=== PATIENT | male | born 1975 | race African-American/Black ===

== ENCOUNTER 2019-03-29 07:56 | Emergency (ER) | payer BC, SELFPAY ==
--- NOTE | 2019-03-29 10:11 | RAD ---
PA AND LATERAL CHEST: Date: 03/29/19 HISTORY: Cold and flu-like symptoms. FINDINGS: The heart size and mediastinum are within normal limits. I do not see any definite confluent infiltra tive process. Some slightly increased density is seen in the right upper lobe as compared to the left side, but difficult to substantiate as a definite infiltrate. IMPRESSION: Vague increased parenchymal density in the right upper lobe. The possibility that this represents nic e early pneumonitis change is not totally excluded. POS: [facility]
== END 2019-03-29 09:30 | disposition home or self-care (01) ==
LOC: ERS 07:56
DX: J18.9 Pneumonia, unspecified organism (principal); F17.210 Nicotine dependence, cigarettes, uncomplicated; H66.92 Otitis media, unspecified, left ear
CPT/HCPCS: 71046; 99283

== ENCOUNTER 2019-09-05 12:05 | Emergency (ER) | payer BC | END 2019-09-05 12:50 | disposition left against medical advice (07) | LOC: ERS 12:05 | DX: Z53.21 Procedure and treatment not carried out due to patient leaving prior to being seen by health care provider (principal) ==

== ENCOUNTER 2020-07-26 07:36 | Emergency (ER) | payer BC, SELFPAY ==
[2020-07-26 08:34] LABS: #Eosinphils 0.5 thou/uL (0.0-0.7); #Lymphocytes 1.5 thou/uL (1.20-3.40); #Monocytes 1.1 thou/uL (0.11-0.59); #Neutrophils 6.8 thou/uL (1.40-6.50); %Basophils 0.3 % (0.0-1.0); %Eosinophils 5.1 % (0.0-10.0); %Lymphocytes 15.3 % (21.0-51.0); %Monocytes 10.6 % (0.0-10.0); %Neutrophils 68.7 % (42.0-75.0); Mean Corpuscular HGB CONC 33.6 g/dL (32.0-36.0); Mean Corpuscular Hemoglobin 31.5 pg (27.0-31.0); Mean Platelet Volume 7.9 fL (7.4-10.4); Platelet Count 232 thou/uL (130-400); RBC Distribution Width 12.5 % (11.5-14.5); Red Blood Cell (RBC) Count 4.75 mill/uL (4.70-6.10); White Blood Cell (WBC) Count 9.9 thou/uL (4.8-10.8)
[2020-07-26 08:44] LABS: Bacteria/HPF None Seen HPF (None Seen); Bilirubin Negative (Negative); Blood, Urine Trace (Negative); Clarity Clear (Clear); Glucose, Urine (Dipstick) Normal (Negative); Ketone, Urine Negative (Negative); Leukocyte Negative Leu/uL (Negative); Nitrite Negative (Negative); Protein, Urine (Dipstick) 300 mg/dL (Neg-Trace); RBC/HPF 0-3 HPF (0-3); Specific Gravity, Urine 1.025 (1.002-1.036); Squamous Epithelial 0-3 HPF (0-3); Urobilinogen 3 mg/dL (Less than 2); WBC/HPF 0-3 HPF (0-3); pH, Urine 6.5 (5.0-9.0)
[2020-07-26 08:59] LABS: ALT (SGPT) 31 U/L (8-55); AST (SGOT) 35 U/L (5-34); Albumin 2.6 g/dL (3.5-5.0); Alkaline Phosphatase 88 U/L (40-110); Anion Gap 10 mmol/L (10-20); BUN (Urea Nitrogen) 11 mg/dL (8.9-20.6); Bilirubin, Total 0.8 mg/dL (0.2-1.2); Calc. Creatinine Clearance 0 mL/min (70-130); Carbon Dioxide 27 mmol/L (22-29); Chloride 102 mmol/L (98-107); Globulin 4.6 g/dL (2.4-3.5); Glucose 90 mg/dL (70-105); Lipase 25 U/L (8-78); Potassium 3.5 mmol/L (3.5-5.1); Protein, Total 7.2 g/dL (6.0-8.3); Sodium 135 mmol/L (136-145)
[2020-07-26] MEDS ORDERED: Iopamidol-370 76% 500 ML 1 ML ONE (08:59)
== END 2020-07-26 09:59 | disposition home or self-care (01) ==
LOC: ERS 07:36
DX: K57.32 Diverticulitis of large intestine without perforation or abscess without bleeding (principal); F17.210 Nicotine dependence, cigarettes, uncomplicated
CPT/HCPCS: 74177; 80053; 81003; 81015; 83690; 85025; Q9967

== ENCOUNTER 2021-05-09 14:29 | Inpatient (IN) | payer SELFPAY ==
[2021-05-09 15:00] LABS: #Lymphocytes 1.3 thou/uL (1.20-3.40); #Monocytes 1.1 thou/uL (0.11-0.59); #Neutrophils 6.8 thou/uL (1.40-6.50); %Basophils 0.1 % (0.0-1.0); %Eosinophils 0.1 % (0.0-10.0); %Lymphocytes 14.2 % (21.0-51.0); %Neutrophils 73.6 % (42.0-75.0); Hemoglobin 6.9 g/dL (14.0-18.0); Mean Corpuscular HGB CONC 34.5 g/dL (32.0-36.0); Mean Corpuscular Hemoglobin 31.6 pg (27.0-31.0); Mean Corpuscular Volume 91.6 fL (78.0-98.0); Mean Platelet Volume 6.7 fL (7.4-10.4); Platelet Count 258 thou/uL (130-400); RBC Distribution Width 12.7 % (11.5-14.5); White Blood Cell (WBC) Count 9.2 thou/uL (4.8-10.8)
[2021-05-09] MEDS ORDERED: Aspirin Chewable 81 MG TAB ONE ×2 (15:02→15:04)
[2021-05-09] MEDS ORDERED: DOBUTamine 500 mg/250 ml 250 ML ONE (15:02)
[2021-05-09] MEDS ORDERED: Furosemide 40 MG/4 ML VIAL ONE (15:02)
[2021-05-09 15:13] LABS: INR-International Normal Ratio 1.1; Prothrombin Time 14.5 sec (12.0-14.7)
[2021-05-09 15:14] LABS: PTT 52.1 sec (22.9-36.1)
[2021-05-09 15:26] LABS: ALT (SGPT) 18 U/L (8-55); AST (SGOT) 32 U/L (5-34); Alkaline Phosphatase 128 U/L (40-110); Anion Gap 8 mmol/L (10-20); BUN (Urea Nitrogen) 51 mg/dL (8.9-20.6); Bilirubin, Total Less than 0.2 mg/dL (0.2-1.2); Calc. Creatinine Clearance 0 mL/min (70-130); Calcium 6.7 mg/dL (7.8-10.44); Carbon Dioxide 12 mmol/L (22-29); Chloride 117 mmol/L (98-107); Globulin 3.4 g/dL (2.4-3.5); Glucose 107 mg/dL (70-105); Potassium 4.3 mmol/L (3.5-5.1); Protein, Total 4.4 g/dL (6.0-8.3); Sodium 133 mmol/L (136-145)
[2021-05-09 15:50] LABS: SARS-CoV-2 NAA Rapid Test Not Detected (NotDetected)
[2021-05-09 16:25] LABS: CK (CPK) 87 U/L (30-200); Lipase 41 U/L (8-78)
[2021-05-09] MEDS ORDERED: Pantoprazole 40 MG VIAL ONE (16:29)
[2021-05-09 16:46] LABS: Bacteria/HPF None Seen HPF (None Seen); Bilirubin Negative (Negative); Blood, Urine 1+ (Negative); Clarity Turbid (Clear); Glucose, Urine (Dipstick) 70 mg/dL (Negative); Ketone, Urine Negative (Negative); Leukocyte Negative Leu/uL (Negative); Nitrite Negative (Negative); Protein, Urine (Dipstick) 200 mg/dL (Neg-Trace); RBC/HPF 0-3 HPF (0-3); Specific Gravity, Urine 1.015 (1.002-1.036); Squamous Epithelial 0-3 HPF (0-3); Urobilinogen Normal mg/dL (Less than 2); WBC/HPF None Seen HPF (0-3); pH, Urine 5.5 (5.0-9.0)
[2021-05-09] MEDS ORDERED: Ondansetron ODT 4 MG TAB PO PRN (16:51)
[2021-05-09] MEDS ORDERED: Ondansetron PF 4 MG/2 ML Vial IVP PRN (16:51)
[2021-05-09] MEDS ORDERED: Sodium Chloride 0.9% 1,000 ML IV SCH (17:00)
[2021-05-09 18:04] LABS: Reticulocyte Count 1.4 % (0.5-1.5)
[2021-05-09 18:25] LABS: Iron 11 ug/dL (65-175)
[2021-05-09 19:05] LABS: Iron Binding Capacity, Total 51 mcg/dL (261-462)
[2021-05-09] MEDS ORDERED: Calcium Carbonate 500 MG ChewTAB PO PRN (19:41)
[2021-05-09] MEDS ORDERED: DOBUTamine 500 mg/250 ml 250 ML IVPB SCH (19:45)
[2021-05-09] MEDS ORDERED: Folic Acid 1 MG TAB PO SCH (21:00)
[2021-05-09] MEDS ORDERED: Pantoprazole 40 MG VIAL IVP SCH ×2 (21:00)
[2021-05-09] MEDS: Doxycycline 100 MG CAP PO SCH (22:03)
[2021-05-09] MEDS: Senokot S 8.6-50 MG TAB PO SCH (22:04)
[2021-05-09] MEDS: Thiamine 100 MG TAB PO SCH (22:04)
[2021-05-09] MEDS ORDERED: Sodium Bicarbonate Tab 325 MG TAB PO SCH (22:15)
[2021-05-09 23:27] VITALS: BMI 21.7
[2021-05-09] MEDS: Albumin 25% 25 GM/100 ML BOT IVPB SCH (23:49)
[2021-05-09] MEDS: Furosemide 20 MG/2 ML VIAL SLOW IVP SCH (23:50)
[2021-05-09] MEDS ORDERED: Furosemide 20 MG/2 ML VIAL SLOW IVP SCH (23:59)
[2021-05-10 04:44] LABS: #Lymphocytes 1.3 thou/uL (1.20-3.40); #Monocytes 0.8 thou/uL (0.11-0.59); #Neutrophils 5.9 thou/uL (1.40-6.50); %Eosinophils 0.5 % (0.0-10.0); %Lymphocytes 16.3 % (21.0-51.0); %Monocytes 9.7 % (0.0-10.0); %Neutrophils 73.4 % (42.0-75.0); Hemoglobin 8.4 g/dL (14.0-18.0); Mean Corpuscular HGB CONC 33.7 g/dL (32.0-36.0); Mean Corpuscular Hemoglobin 29.8 pg (27.0-31.0); Mean Corpuscular Volume 88.5 fL (78.0-98.0); Mean Platelet Volume 6.6 fL (7.4-10.4); Platelet Count 250 thou/uL (130-400); RBC Distribution Width 14.9 % (11.5-14.5); Red Blood Cell (RBC) Count 2.82 mill/uL (4.70-6.10); White Blood Cell (WBC) Count 8.1 thou/uL (4.8-10.8)
[2021-05-10 05:15] LABS: ALT (SGPT) 16 U/L (8-55); AST (SGOT) 27 U/L (5-34); Albumin 1.3 g/dL (3.5-5.0); Alkaline Phosphatase 115 U/L (40-110); Anion Gap 7 mmol/L (10-20); BUN (Urea Nitrogen) 49 mg/dL (8.9-20.6); Bilirubin, Total 0.4 mg/dL (0.2-1.2); CRP (Inflammatory) 4.65 mg/dL (= or < 0.5); Calc. Creatinine Clearance 31 mL/min (70-130); Calcium 7.2 mg/dL (7.8-10.44); Carbon Dioxide 15 mmol/L (22-29); Chloride 114 mmol/L (98-107); Globulin 3.1 g/dL (2.4-3.5); Glucose 68 mg/dL (70-105); Protein, Total 4.4 g/dL (6.0-8.3); Sodium 132 mmol/L (136-145)
[2021-05-10 05:28] LABS: Hep C IgG Ab Non-Reactive (NonReactive); Hep C Index 0.32 S/CO (0-0.79)
[2021-05-10 05:34] LABS: Vitamin B12 786 pg/mL (211-911)
[2021-05-10] MEDS: Albumin 25% 25 GM/100 ML BOT IVPB SCH ×3 (06:13→17:03)
[2021-05-10] MEDS: Furosemide 20 MG/2 ML VIAL SLOW IVP SCH (06:13)
[2021-05-10] MEDS ORDERED: Aspirin 81 mg Enteric Coated Tablet PO SCH ×2 (09:00)
[2021-05-10] MEDS: pyridOXINE 50 MG (B6) TAB PO SCH (10:57)
[2021-05-10] MEDS: Multivit, Therapeutic 1 TAB PO SCH (10:57)
[2021-05-10] MEDS: Folic Acid 1 MG TAB PO SCH (10:57)
[2021-05-10] MEDS: Doxycycline 100 MG CAP PO SCH ×2 (10:57→22:19)
[2021-05-10] MEDS: Cyanocobalamin (Vitamin B-12) 1,000 MCG TAB PO SCH (10:57)
[2021-05-10] MEDS: Senokot S 8.6-50 MG TAB PO SCH ×2 (10:58→22:19)
[2021-05-10] MEDS: EPOETIN ALFA-EPBX (ESRD) 10,000 UNIT/ML VIAL SC SCH (17:04)
[2021-05-10] MEDS: Thiamine 100 MG TAB PO SCH (22:19)
[2021-05-10] MEDS: Acetaminophen 325 MG TAB PO PRN (22:20)
[2021-05-10] MEDS: Atorvastatin Calcium 20 MG TAB PO SCH (22:20)
[2021-05-11] MEDS: Albumin 25% 25 GM/100 ML BOT IVPB SCH (00:20)
[2021-05-11 05:26] LABS: #Eosinphils 0.1 thou/uL (0.0-0.7); #Lymphocytes 0.9 thou/uL (1.20-3.40); #Monocytes 0.8 thou/uL (0.11-0.59); #Neutrophils 5.7 thou/uL (1.40-6.50); %Basophils 0.4 % (0.0-1.0); %Eosinophils 0.8 % (0.0-10.0); %Lymphocytes 12.6 % (21.0-51.0); %Monocytes 10.4 % (0.0-10.0); %Neutrophils 75.9 % (42.0-75.0); Hemoglobin 7.9 g/dL (14.0-18.0); Mean Corpuscular HGB CONC 34.1 g/dL (32.0-36.0); Mean Corpuscular Hemoglobin 30.2 pg (27.0-31.0); Mean Corpuscular Volume 88.5 fL (78.0-98.0); Mean Platelet Volume 6.8 fL (7.4-10.4); Platelet Count 230 thou/uL (130-400); RBC Distribution Width 14.8 % (11.5-14.5); White Blood Cell (WBC) Count 7.5 thou/uL (4.8-10.8)
[2021-05-11 05:46] LABS: ALT (SGPT) 12 U/L (8-55); AST (SGOT) 23 U/L (5-34); Albumin 1.8 g/dL (3.5-5.0); Alkaline Phosphatase 91 U/L (40-110); Anion Gap 9 mmol/L (10-20); BUN (Urea Nitrogen) 50 mg/dL (8.9-20.6); Bilirubin, Total 0.4 mg/dL (0.2-1.2); Calc. Creatinine Clearance 28 mL/min (70-130); Calcium 7.2 mg/dL (7.8-10.44); Carbon Dioxide 13 mmol/L (22-29); Chloride 117 mmol/L (98-107); Globulin 2.7 g/dL (2.4-3.5); Glucose 91 mg/dL (70-105); Potassium 3.6 mmol/L (3.5-5.1); Protein, Total 4.5 g/dL (6.0-8.3); Sodium 135 mmol/L (136-145)
[2021-05-11 06:24] LABS: HBSAg Index 0.24 S/CO (0-0.99); Hep B Surf Ag Non-Reactive S/CO (NonReactive)
[2021-05-11 06:28] LABS: HIV (1/2) Antibody/Antigen Reflxed Confirmation (NonReactive)
[2021-05-11] MEDS ORDERED: Potassium Chloride 20 MEQ TAB PO SCH (08:45)
[2021-05-11] MEDS: Doxycycline 100 MG CAP PO SCH ×2 (10:21→21:18)
[2021-05-11] MEDS: pyridOXINE 50 MG (B6) TAB PO SCH (10:30)
[2021-05-11] MEDS: Folic Acid 1 MG TAB PO SCH (10:31)
[2021-05-11] MEDS: Sodium Bicarbonate Tab 325 MG TAB PO SCH ×3 (10:31→21:18)
[2021-05-11] MEDS: Multivit, Therapeutic 1 TAB PO SCH (10:32)
[2021-05-11] MEDS: Cyanocobalamin (Vitamin B-12) 1,000 MCG TAB PO SCH (10:32)
[2021-05-11] MEDS: Senokot S 8.6-50 MG TAB PO SCH ×2 (10:33→21:19)
[2021-05-11] MEDS: Acetaminophen 325 MG TAB PO PRN (13:40)
[2021-05-11] MEDS: Cefepime 1 GM in Sodium Chloride 0.9% 100 ML IVPB SCH (15:28)
[2021-05-11] MEDS ORDERED: Vancomycin HCl 1 GM in Sodium Chloride 0.9% 250 ML 250 ML IVPB SCH (16:00)
[2021-05-11] MEDS: VANCOMYCIN 1.25 GM/250 ML BAG 1.25 GM in Premix Bag 1 BAG IVPB SCH (17:01)
[2021-05-11] MEDS ORDERED: DOBUTamine 500 mg/250 ml 250 ML IVPB SCH (19:59)
[2021-05-11] MEDS: Atorvastatin Calcium 20 MG TAB PO SCH (21:19)
[2021-05-11] MEDS: Thiamine 100 MG TAB PO SCH (21:19)
[2021-05-12] MEDS: Sodium Bicarbonate Tab 325 MG TAB PO SCH ×5 (10:17→21:08)
[2021-05-12] MEDS: Doxycycline 100 MG CAP PO SCH ×2 (10:18→21:07)
[2021-05-12] MEDS: Cyanocobalamin (Vitamin B-12) 1,000 MCG TAB PO SCH (10:18)
[2021-05-12] MEDS: Multivit, Therapeutic 1 TAB PO SCH (10:18)
[2021-05-12] MEDS: Folic Acid 1 MG TAB PO SCH (10:18)
[2021-05-12] MEDS: pyridOXINE 50 MG (B6) TAB PO SCH (10:18)
[2021-05-12] MEDS: Senokot S 8.6-50 MG TAB PO SCH ×2 (10:19→21:08)
[2021-05-12 10:39] LABS: Albumin-Ur 28.9 % (.); Alpha 1 - Ur 3.3 % (.); Alpha 2 - Ur 11.2 % (.); Beta-Ur 16.2 % (.); Gamma-Ur 40.4 % (.); M-Spike,% Not Observed % (Not Observed); Protein, Urine 458.6 mg/dL (Not Estab.)
[2021-05-12 12:51] LABS: ANA Symphony (Qualitative) Negative (Negative); ANA Symphony (Quantitative) 0.5 Ratio (< 0.7 Negative); dsDNA IgG Antibody 5.8 IU/mL (<10 Negative)
[2021-05-12 13:15] LABS: HIV 1 Antibody Multi-Spot Positive (Negative); HIV 2 Antibody Multi-Spot Negative (Negative); HIV Multi-spot Interp HIV-1 Positive (.)
[2021-05-12 13:20] LABS: EliA Vaculitis New Method **** NEW METHOD ****; Glomerular Basemt Membrane Ab 2.7 EliAU/mL (<7 Negative)
[2021-05-12 13:39] LABS: Kappa Light Chains 468.4 mg/L (3.3-19.4)
[2021-05-12 14:43] LABS: Vancomycin, Random 13.5 ug/mL (See Comment)
[2021-05-12] MEDS: VANCOMYCIN 1.25 GM/250 ML BAG 1.25 GM in Premix Bag 1 BAG IVPB SCH (15:11)
[2021-05-12] MEDS: Acetaminophen 325 MG TAB PO PRN (15:15)
[2021-05-12] MEDS ORDERED: VANCOMYCIN 1.25 GM/250 ML BAG 1.25 GM in Premix Bag 1 BAG IVPB SCH (15:45)
[2021-05-12] MEDS ORDERED: Furosemide 20 MG/2 ML VIAL SLOW IVP SCH (16:30)
[2021-05-12 16:36] LABS: %CD4 (Helper/Inducer) 7.7 % (30.8-58.5); Absolute CD4 62 /uL (359-1519); Lymphocytes/Gated Cell Count 0.8 x10E3/uL (0.7-3.1); Total Lymphocyte 12 % (Not Estab.)
[2021-05-12] MEDS: Cefepime 1 GM in Sodium Chloride 0.9% 100 ML IVPB SCH (17:12)
[2021-05-12 17:37] LABS: A/G Ratio 0.8 (0.7-1.7); Albumin 1.8 g/dL (2.9-4.4); Alpha 1 0.2 g/dL (0.0-0.4); Alpha 2 0.6 g/dL (0.4-1.0); Beta 0.7 g/dL (0.7-1.3); Gamma 0.9 g/dL (0.4-1.8); Globulin, Total 2.4 g/dL (2.2-3.9); M-Spike Not Observed g/dL (Not Observed); Protein Electrophoresis Intrp Note: (.)
[2021-05-12] MEDS: Raltegravir Potassium 400 MG TAB PO SCH (21:07)
[2021-05-12] MEDS: Lopinavir/Ritonavir 200-50mg TAB PO SCH (21:07)
[2021-05-12] MEDS: Atorvastatin Calcium 20 MG TAB PO SCH (21:07)
[2021-05-12] MEDS: Thiamine 100 MG TAB PO SCH (21:08)
[2021-05-13 05:03] LABS: Anion Gap 7 mmol/L (10-20); BUN (Urea Nitrogen) 40 mg/dL (8.9-20.6); Calc. Creatinine Clearance 33 mL/min (70-130); Calcium 6.9 mg/dL (7.8-10.44); Carbon Dioxide 15 mmol/L (22-29); Chloride 115 mmol/L (98-107); Glucose 110 mg/dL (70-105); Potassium 3.3 mmol/L (3.5-5.1); Sodium 134 mmol/L (136-145)
[2021-05-13] MEDS: Doxycycline 100 MG CAP PO SCH ×2 (10:54→20:48)
[2021-05-13] MEDS: Sodium Bicarbonate Tab 325 MG TAB PO SCH ×3 (10:54→20:49)
[2021-05-13] MEDS: Raltegravir Potassium 400 MG TAB PO SCH ×2 (10:55→20:49)
[2021-05-13] MEDS: Folic Acid 1 MG TAB PO SCH (10:55)
[2021-05-13] MEDS: Fluconazole 100 MG TAB PO SCH (10:55)
[2021-05-13] MEDS: pyridOXINE 50 MG (B6) TAB PO SCH (10:56)
[2021-05-13] MEDS: Multivit, Therapeutic 1 TAB PO SCH (10:56)
[2021-05-13] MEDS: Cyanocobalamin (Vitamin B-12) 1,000 MCG TAB PO SCH (10:56)
[2021-05-13] MEDS: Lopinavir/Ritonavir 200-50mg TAB PO SCH ×2 (10:56→20:48)
[2021-05-13] MEDS: Sulfameth/Trimethoprim SS 400-80MG TAB PO SCH (10:57)
[2021-05-13] MEDS: Senokot S 8.6-50 MG TAB PO SCH ×2 (10:58→20:49)
[2021-05-13 14:38] LABS: Cytoplasmic (C-ANCA) <1:20 titer (Neg:<1:20); Myeloperoxidase AutoAbs <9.0 U/mL (0.0-9.0); Perinuclear (P-ANCA) <1:20 titer (Neg:<1:20); Proteinase-3 AutoAbs Less than 3.5 U/mL (0.0-3.5)
[2021-05-13] MEDS: Acetaminophen 325 MG TAB PO PRN (15:54)
[2021-05-13] MEDS: Atorvastatin Calcium 20 MG TAB PO SCH (20:48)
[2021-05-13] MEDS: Potassium Chloride 20 MEQ TAB PO SCH (20:48)
[2021-05-13] MEDS: Thiamine 100 MG TAB PO SCH (20:49)
[2021-05-14] MEDS: Sodium Bicarbonate Tab 325 MG TAB PO SCH ×3 (10:44→20:32)
[2021-05-14] MEDS: Fluconazole 100 MG TAB PO SCH (10:44)
[2021-05-14] MEDS: Sulfameth/Trimethoprim SS 400-80MG TAB PO SCH (10:45)
[2021-05-14] MEDS: Multivit, Therapeutic 1 TAB PO SCH (10:45)
[2021-05-14] MEDS: Doxycycline 100 MG CAP PO SCH ×2 (10:45→20:31)
[2021-05-14] MEDS: Cyanocobalamin (Vitamin B-12) 1,000 MCG TAB PO SCH (10:45)
[2021-05-14] MEDS: pyridOXINE 50 MG (B6) TAB PO SCH (10:45)
[2021-05-14] MEDS: Raltegravir Potassium 400 MG TAB PO SCH ×2 (10:45→20:32)
[2021-05-14] MEDS: Potassium Chloride 20 MEQ TAB PO SCH (10:45)
[2021-05-14] MEDS: Folic Acid 1 MG TAB PO SCH (10:46)
[2021-05-14] MEDS: Lopinavir/Ritonavir 200-50mg TAB PO SCH ×2 (10:46→20:31)
[2021-05-14] MEDS: Senokot S 8.6-50 MG TAB PO SCH ×2 (10:47→20:32)
[2021-05-14 11:39] LABS: Chloride 115 mmol/L (98-107); Potassium 3.6 mmol/L (3.5-5.1)
[2021-05-14 11:40] LABS: Calcium 6.8 mg/dL (7.8-10.44); Glucose 97 mg/dL (70-105); Sodium 133 mmol/L (136-145)
[2021-05-14 11:42] LABS: Anion Gap 7 mmol/L (10-20); Carbon Dioxide 15 mmol/L (22-29)
[2021-05-14 11:44] LABS: Calc. Creatinine Clearance 31 mL/min (70-130)
[2021-05-14 11:45] LABS: BUN (Urea Nitrogen) 39 mg/dL (8.9-20.6)
[2021-05-14] MEDS: Atorvastatin Calcium 20 MG TAB PO SCH (20:31)
[2021-05-14] MEDS: Thiamine 100 MG TAB PO SCH (20:32)
[2021-05-15] MEDS: Acetaminophen 325 MG TAB PO PRN ×2 (04:07→22:15)
[2021-05-15 05:05] LABS: Anion Gap 8 mmol/L (10-20); BUN (Urea Nitrogen) 40 mg/dL (8.9-20.6); Calc. Creatinine Clearance 32 mL/min (70-130); Carbon Dioxide 15 mmol/L (22-29); Chloride 115 mmol/L (98-107); Glucose 73 mg/dL (70-105); Potassium 3.9 mmol/L (3.5-5.1); Sodium 134 mmol/L (136-145)
[2021-05-15] MEDS: Sodium Bicarbonate Tab 325 MG TAB PO SCH ×3 (08:42→22:00)
[2021-05-15] MEDS: Doxycycline 100 MG CAP PO SCH ×2 (08:42→22:00)
[2021-05-15] MEDS: Lopinavir/Ritonavir 200-50mg TAB PO SCH ×2 (08:43→22:01)
[2021-05-15] MEDS: Sulfameth/Trimethoprim SS 400-80MG TAB PO SCH (08:44)
[2021-05-15] MEDS: pyridOXINE 50 MG (B6) TAB PO SCH (08:44)
[2021-05-15] MEDS: Fluconazole 100 MG TAB PO SCH (08:44)
[2021-05-15] MEDS: Multivit, Therapeutic 1 TAB PO SCH (08:44)
[2021-05-15] MEDS: Senokot S 8.6-50 MG TAB PO SCH ×2 (08:44→22:02)
[2021-05-15] MEDS: Folic Acid 1 MG TAB PO SCH (08:45)
[2021-05-15] MEDS: Cyanocobalamin (Vitamin B-12) 1,000 MCG TAB PO SCH (08:45)
[2021-05-15] MEDS: Raltegravir Potassium 400 MG TAB PO SCH ×2 (09:51→22:01)
[2021-05-15] MEDS ORDERED: Furosemide 40 MG/4 ML VIAL SLOW IVP SCH (11:15)
[2021-05-15] MEDS: Thiamine 100 MG TAB PO SCH (22:00)
[2021-05-15] MEDS: Atorvastatin Calcium 20 MG TAB PO SCH (22:01)
[2021-05-16] MEDS: Cyanocobalamin (Vitamin B-12) 1,000 MCG TAB PO SCH (09:33)
[2021-05-16] MEDS: Lopinavir/Ritonavir 200-50mg TAB PO SCH ×2 (09:33→20:53)
[2021-05-16] MEDS: Senokot S 8.6-50 MG TAB PO SCH ×2 (09:33→20:53)
[2021-05-16] MEDS: Fluconazole 100 MG TAB PO SCH (09:34)
[2021-05-16] MEDS: Doxycycline 100 MG CAP PO SCH ×2 (09:34→20:51)
[2021-05-16] MEDS: pyridOXINE 50 MG (B6) TAB PO SCH (09:34)
[2021-05-16] MEDS: Multivit, Therapeutic 1 TAB PO SCH (09:34)
[2021-05-16] MEDS: Folic Acid 1 MG TAB PO SCH (09:34)
[2021-05-16] MEDS: Furosemide 40 MG/4 ML VIAL SLOW IVP SCH (09:35)
[2021-05-16] MEDS: Sulfameth/Trimethoprim SS 400-80MG TAB PO SCH (09:37)
[2021-05-16] MEDS: Raltegravir Potassium 400 MG TAB PO SCH ×2 (09:37→20:52)
[2021-05-16] MEDS: Sodium Bicarbonate Tab 325 MG TAB PO SCH ×3 (11:23→20:51)
[2021-05-16] MEDS: Atorvastatin Calcium 20 MG TAB PO SCH (20:52)
[2021-05-16] MEDS: Thiamine 100 MG TAB PO SCH (20:52)
[2021-05-17 05:51] LABS: Anion Gap 7 mmol/L (10-20); BUN (Urea Nitrogen) 41 mg/dL (8.9-20.6); Calc. Creatinine Clearance 32 mL/min (70-130); Calcium 7.1 mg/dL (7.8-10.44); Carbon Dioxide 18 mmol/L (22-29); Chloride 114 mmol/L (98-107); Glucose 64 mg/dL (70-105); Magnesium 1.6 mg/dL (1.6-2.6); Potassium 3.8 mmol/L (3.5-5.1); Sodium 135 mmol/L (136-145)
[2021-05-17] MEDS: Doxycycline 100 MG CAP PO SCH ×2 (08:01→20:23)
[2021-05-17] MEDS: Senokot S 8.6-50 MG TAB PO SCH ×2 (08:02→20:21)
[2021-05-17] MEDS: Sodium Bicarbonate Tab 325 MG TAB PO SCH ×3 (08:02→20:25)
[2021-05-17] MEDS: Fluconazole 100 MG TAB PO SCH (08:03)
[2021-05-17] MEDS: Multivit, Therapeutic 1 TAB PO SCH (08:03)
[2021-05-17] MEDS: pyridOXINE 50 MG (B6) TAB PO SCH (08:03)
[2021-05-17] MEDS: Lopinavir/Ritonavir 200-50mg TAB PO SCH ×2 (08:03→20:20)
[2021-05-17] MEDS: Cyanocobalamin (Vitamin B-12) 1,000 MCG TAB PO SCH (08:03)
[2021-05-17] MEDS: Folic Acid 1 MG TAB PO SCH (08:03)
[2021-05-17] MEDS: Sulfameth/Trimethoprim SS 400-80MG TAB PO SCH (08:04)
[2021-05-17] MEDS: Furosemide 40 MG/4 ML VIAL SLOW IVP SCH (08:04)
[2021-05-17] MEDS: Raltegravir Potassium 400 MG TAB PO SCH ×2 (09:57→20:24)
[2021-05-17 12:44] LABS: SARS-CoV-2 PCR by NAA Not Detected (NotDetected)
[2021-05-17] MEDS: EPOETIN ALFA-EPBX (ESRD) 10,000 UNIT/ML VIAL SC SCH (14:12)
[2021-05-17 18:12] LABS: CMV log 10 Quant 3.674 (.)
[2021-05-17] MEDS: Thiamine 100 MG TAB PO SCH (20:20)
[2021-05-17] MEDS: Atorvastatin Calcium 20 MG TAB PO SCH (20:20)
[2021-05-18 04:21] LABS: #Eosinphils 0.1 thou/uL (0.0-0.7); #Lymphocytes 1.3 thou/uL (1.20-3.40); #Monocytes 0.7 thou/uL (0.11-0.59); #Neutrophils 5.6 thou/uL (1.40-6.50); %Basophils 0.2 % (0.0-1.0); %Eosinophils 1.2 % (0.0-10.0); %Lymphocytes 16.5 % (21.0-51.0); %Monocytes 9.5 % (0.0-10.0); %Neutrophils 72.7 % (42.0-75.0); Hemoglobin 8.2 g/dL (14.0-18.0); Mean Corpuscular HGB CONC 33.5 g/dL (32.0-36.0); Mean Corpuscular Hemoglobin 29.7 pg (27.0-31.0); Mean Corpuscular Volume 88.7 fL (78.0-98.0); Mean Platelet Volume 6.7 fL (7.4-10.4); Platelet Count 283 thou/uL (130-400); Red Blood Cell (RBC) Count 2.75 mill/uL (4.70-6.10); White Blood Cell (WBC) Count 7.7 thou/uL (4.8-10.8)
[2021-05-18 04:42] LABS: Phosphorus 2.8 mg/dL (2.3-4.7)
[2021-05-18 04:45] LABS: Anion Gap 7 mmol/L (10-20); BUN (Urea Nitrogen) 38 mg/dL (8.9-20.6); Calc. Creatinine Clearance 32 mL/min (70-130); Carbon Dioxide 19 mmol/L (22-29); Chloride 114 mmol/L (98-107); Glucose 66 mg/dL (70-105); Magnesium 1.5 mg/dL (1.6-2.6); Potassium 3.6 mmol/L (3.5-5.1); Sodium 136 mmol/L (136-145)
[2021-05-18] MEDS: Senokot S 8.6-50 MG TAB PO SCH (07:55)
[2021-05-18] MEDS: Sodium Bicarbonate Tab 325 MG TAB PO SCH ×2 (07:55→14:00)
[2021-05-18] MEDS: Lopinavir/Ritonavir 200-50mg TAB PO SCH (07:56)
[2021-05-18] MEDS: Sulfameth/Trimethoprim SS 400-80MG TAB PO SCH (07:56)
[2021-05-18] MEDS: pyridOXINE 50 MG (B6) TAB PO SCH (07:56)
[2021-05-18] MEDS: Fluconazole 100 MG TAB PO SCH (07:56)
[2021-05-18] MEDS: Furosemide 20 MG TAB PO SCH ×2 (07:57→14:00)
[2021-05-18] MEDS: Doxycycline 100 MG CAP PO SCH (07:57)
[2021-05-18] MEDS: Cyanocobalamin (Vitamin B-12) 1,000 MCG TAB PO SCH (07:57)
[2021-05-18] MEDS: Multivit, Therapeutic 1 TAB PO SCH (07:57)
[2021-05-18] MEDS: Folic Acid 1 MG TAB PO SCH (07:57)
[2021-05-18] MEDS ORDERED: Magnesium 2 GM/50 ML 2 GM in Premix Bag 1 BAG IVPB SCH (08:15)
[2021-05-18] MEDS: Raltegravir Potassium 400 MG TAB PO SCH (08:40)
[2021-05-18 15:19] VITALS: BP 112/72; TEMP 98
[2021-05-19 20:12] LABS: QuantiFERON-TB Gold Plus Indeterminate (Negative)
== END 2021-05-18 15:01 | disposition home or self-care (01) | DRG 974 ==
LOC: ERS 14:29 → 2NO 16:41
PROVIDERS: ADMIT Internal Medicine; ATTEND Internal Medicine
PROC: 30233N1 Transfusion of Nonautologous Red Blood Cells into Peripheral Vein, Percutaneous Approach (ICD-10-PCS; principal; 2021-05-09)
DX: J18.9 Pneumonia, unspecified organism (principal); I50.23 Acute on chronic systolic (congestive) heart failure; B20 Human immunodeficiency virus [HIV] disease; I13.0 Hypertensive heart and chronic kidney disease with heart failure and stage 1 through stage 4 chronic kidney disease, or unspecified chronic kidney disease; N17.9 Acute kidney failure, unspecified; E87.1 Hypo-osmolality and hyponatremia; E87.2 Acidosis; I42.8 Other cardiomyopathies; E44.0 Moderate protein-calorie malnutrition; B37.0 Candidal stomatitis; N18.4 Chronic kidney disease, stage 4 (severe); Z20.822 Contact with and (suspected) exposure to COVID-19; F17.210 Nicotine dependence, cigarettes, uncomplicated; F10.20 Alcohol dependence, uncomplicated; E78.5 Hyperlipidemia, unspecified; D63.1 Anemia in chronic kidney disease; E88.09 Other disorders of plasma-protein metabolism, not elsewhere classified; E78.00 Pure hypercholesterolemia, unspecified; D50.9 Iron deficiency anemia, unspecified; E87.6 Hypokalemia; Z79.82 Long term (current) use of aspirin; Z79.899 Other long term (current) drug therapy; Z68.21 Body mass index [BMI] 21.0-21.9, adult
CPT/HCPCS: 0240U; 36415; 36430; 71045; 76770; 80048; 80053; 80202; 81003; 81015; 82274; 82550; 82570; 82607; 82728; 82746; 83516; 83520; 83540; 83550; 83605; 83690; 83735; 83880; 83883; 84100; 84156; 84165; 84166; 84484; 85025; 85046; 85048; 85610; 85730; 86038; 86140; 86225; 86256; 86361; 86480; 86701; 86702; 86803; 86850; 86900; 86901; 87040; 87116; 87206; 87340; 87389; 87449; 87497; 87899; 93005; 93306; 93970; 94760; 96365; 96366; 96375; 97139; C9113; J0692; J1250; J1940; J2405; J3370; J3475; J3490; P9016; P9047; Q5105; U0003; U0005

== ENCOUNTER 2021-06-09 10:52 | Inpatient (IN) | payer OTHER ==
[2021-06-09 11:37] LABS: #Lymphocytes 1.2 thou/uL (1.20-3.40); #Monocytes 0.5 thou/uL (0.11-0.59); #Neutrophils 7.6 thou/uL (1.40-6.50); %Basophils 0.4 % (0.0-1.0); %Eosinophils 0.2 % (0.0-10.0); %Lymphocytes 12.8 % (21.0-51.0); %Monocytes 5.8 % (0.0-10.0); %Neutrophils 80.8 % (42.0-75.0); Hemoglobin 8.4 g/dL (14.0-18.0); Mean Corpuscular HGB CONC 31.9 g/dL (32.0-36.0); Mean Corpuscular Hemoglobin 29.4 pg (27.0-31.0); Mean Corpuscular Volume 92.1 fL (78.0-98.0); Mean Platelet Volume 7.2 fL (7.4-10.4); Platelet Count 312 thou/uL (130-400); RBC Distribution Width 15.9 % (11.5-14.5); Red Blood Cell (RBC) Count 2.84 mill/uL (4.70-6.10); White Blood Cell (WBC) Count 9.4 thou/uL (4.8-10.8)
[2021-06-09 11:55] LABS: ALT (SGPT) 28 U/L (8-55); AST (SGOT) 43 U/L (5-34); Alkaline Phosphatase 150 U/L (40-110); Anion Gap 10 mmol/L (10-20); BUN (Urea Nitrogen) 42 mg/dL (8.9-20.6); Bilirubin, Total 0.2 mg/dL (0.2-1.2); CK (CPK) 34 U/L (30-200); Calc. Creatinine Clearance 0 mL/min (70-130); Calcium 6.4 mg/dL (7.8-10.44); Carbon Dioxide 21 mmol/L (22-29); Chloride 107 mmol/L (98-107); Globulin 3.5 g/dL (2.4-3.5); Glucose 76 mg/dL (70-105); Potassium 3.8 mmol/L (3.5-5.1); Protein, Total 4.5 g/dL (6.0-8.3); Sodium 134 mmol/L (136-145)
[2021-06-09] MEDS ORDERED: HYDROcodone/Acetaminophen 5/325 mg Tablet PO PRN (12:52)
[2021-06-09] MEDS ORDERED: Ondansetron PF 4 MG/2 ML Vial IVP PRN (12:52)
[2021-06-09] MEDS ORDERED: Guaifenesin DM 100-10/5 ML UDCUP PO PRN (12:52)
[2021-06-09] MEDS ORDERED: Bisacodyl 10 MG SUPP ONE (18:32)
[2021-06-09] MEDS: Dextrose 5% in Water 1,000 ML IV SCH (18:37)
[2021-06-09] MEDS: Bisacodyl 10 MG SUPP PR SCH ×2 (18:38→21:24)
[2021-06-09] MEDS: Sodium Bicarbonate Tab 325 MG TAB PO SCH ×2 (18:38→21:23)
[2021-06-09] MEDS: Senokot S 8.6-50 MG TAB PO SCH (21:23)
[2021-06-09] MEDS: Atorvastatin Calcium 20 MG TAB PO SCH (21:23)
[2021-06-09] MEDS: Thiamine 100 MG TAB PO SCH (21:23)
[2021-06-10 03:31] VITALS: BMI 19.8
[2021-06-10] MEDS: Dextrose 5% in Water 1,000 ML IV SCH ×2 (03:45→05:45)
[2021-06-10] MEDS: Bisacodyl 10 MG SUPP PR SCH ×2 (06:17→14:32)
[2021-06-10 06:43] LABS: #Basophils 0.1 thou/uL (0.0-0.2); #Lymphocytes 0.8 thou/uL (1.20-3.40); #Monocytes 0.4 thou/uL (0.11-0.59); #Neutrophils 4.7 thou/uL (1.40-6.50); %Basophils 2.4 % (0.0-1.0); %Eosinophils 0.5 % (0.0-10.0); %Lymphocytes 12.4 % (21.0-51.0); %Monocytes 7.2 % (0.0-10.0); %Neutrophils 77.5 % (42.0-75.0); Hemoglobin 7.3 g/dL (14.0-18.0); Mean Corpuscular Hemoglobin 30.7 pg (27.0-31.0); Mean Corpuscular Volume 92.9 fL (78.0-98.0); Platelet Count 257 thou/uL (130-400); RBC Distribution Width 15.6 % (11.5-14.5); Red Blood Cell (RBC) Count 2.39 mill/uL (4.70-6.10); White Blood Cell (WBC) Count 6.1 thou/uL (4.8-10.8)
[2021-06-10 07:01] LABS: ALT (SGPT) 22 U/L (8-55); AST (SGOT) 37 U/L (5-34); Albumin Less than 1.0 g/dL (3.5-5.0); Alkaline Phosphatase 132 U/L (40-110); Anion Gap 7 mmol/L (10-20); BUN (Urea Nitrogen) 37 mg/dL (8.9-20.6); Bilirubin, Total 0.2 mg/dL (0.2-1.2); Calc. Creatinine Clearance 30 mL/min (70-130); Calcium 6.5 mg/dL (7.8-10.44); Carbon Dioxide 23 mmol/L (22-29); Chloride 105 mmol/L (98-107); Globulin 3.1 g/dL (2.4-3.5); Glucose 102 mg/dL (70-105); Potassium 3.4 mmol/L (3.5-5.1); Protein, Total 4.1 g/dL (6.0-8.3); Sodium 132 mmol/L (136-145)
[2021-06-10] MEDS: Folic Acid 1 MG TAB PO SCH (08:30)
[2021-06-10] MEDS: Senokot S 8.6-50 MG TAB PO SCH ×2 (08:30→22:06)
[2021-06-10] MEDS: Aspirin 81 mg Enteric Coated Tablet PO SCH (08:31)
[2021-06-10] MEDS: Sodium Bicarbonate Tab 325 MG TAB PO SCH ×3 (08:31→22:05)
[2021-06-10] MEDS: Cyanocobalamin (Vitamin B-12) 1,000 MCG TAB PO SCH (08:31)
[2021-06-10] MEDS: pyridOXINE 50 MG (B6) TAB PO SCH (08:31)
[2021-06-10] MEDS: Fluconazole 100 MG TAB PO SCH (08:31)
[2021-06-10] MEDS: Enoxaparin Sodium 30 MG/0.3 ML SYRINGE SC SCH (08:36)
[2021-06-10] MEDS ORDERED: Darunavir/Cobicistat [Prezcobix 800 Mg-150 Mg Tablet] PO SCH (09:00)
[2021-06-10] MEDS: Sulfameth/Trimethoprim SS 400-80MG TAB PO SCH (12:31)
[2021-06-10] MEDS ORDERED: Sodium Chloride 0.9% 1,000 ML IV SCH (17:15)
[2021-06-10] MEDS: Sodium Chloride 0.9% 1,000 ML IV SCH (17:53)
[2021-06-10] MEDS: Raltegravir Potassium 400 MG TAB PO SCH (22:05)
[2021-06-10] MEDS: Lopinavir/Ritonavir 200-50mg TAB PO SCH (22:05)
[2021-06-10] MEDS: Atorvastatin Calcium 20 MG TAB PO SCH (22:05)
[2021-06-10] MEDS: Thiamine 100 MG TAB PO SCH (22:06)
[2021-06-11 06:17] LABS: #Lymphocytes 1.1 thou/uL (1.20-3.40); #Monocytes 0.5 thou/uL (0.11-0.59); #Neutrophils 6.1 thou/uL (1.40-6.50); %Basophils 0.1 % (0.0-1.0); %Eosinophils 0.2 % (0.0-10.0); %Lymphocytes 13.7 % (21.0-51.0); %Monocytes 6.3 % (0.0-10.0); %Neutrophils 79.7 % (42.0-75.0); Mean Corpuscular HGB CONC 32.7 g/dL (32.0-36.0); Mean Corpuscular Hemoglobin 29.8 pg (27.0-31.0); Platelet Count 264 thou/uL (130-400); RBC Distribution Width 15.7 % (11.5-14.5); Red Blood Cell (RBC) Count 2.68 mill/uL (4.70-6.10); White Blood Cell (WBC) Count 7.7 thou/uL (4.8-10.8)
[2021-06-11 06:40] LABS: ALT (SGPT) 23 U/L (8-55); AST (SGOT) 38 U/L (5-34); Albumin Less than 1.0 g/dL (3.5-5.0); Alkaline Phosphatase 134 U/L (40-110); Anion Gap 7 mmol/L (10-20); BUN (Urea Nitrogen) 34 mg/dL (8.9-20.6); Bilirubin, Total 0.2 mg/dL (0.2-1.2); Calc. Creatinine Clearance 35 mL/min (70-130); Calcium 6.4 mg/dL (7.8-10.44); Carbon Dioxide 22 mmol/L (22-29); Chloride 107 mmol/L (98-107); Globulin 3.4 g/dL (2.4-3.5); Glucose 73 mg/dL (70-105); Potassium 3.2 mmol/L (3.5-5.1); Protein, Total 4.4 g/dL (6.0-8.3); Sodium 133 mmol/L (136-145)
[2021-06-11] MEDS: Sodium Chloride 0.9% 1,000 ML IV SCH ×2 (06:47→21:10)
[2021-06-11] MEDS: Senokot S 8.6-50 MG TAB PO SCH ×2 (09:41→21:12)
[2021-06-11] MEDS: Cyanocobalamin (Vitamin B-12) 1,000 MCG TAB PO SCH (09:41)
[2021-06-11] MEDS: Sulfameth/Trimethoprim SS 400-80MG TAB PO SCH (09:41)
[2021-06-11] MEDS: pyridOXINE 50 MG (B6) TAB PO SCH (09:41)
[2021-06-11] MEDS: Sodium Bicarbonate Tab 325 MG TAB PO SCH ×3 (09:42→21:12)
[2021-06-11] MEDS: Aspirin 81 mg Enteric Coated Tablet PO SCH (09:43)
[2021-06-11] MEDS: Fluconazole 100 MG TAB PO SCH (09:43)
[2021-06-11] MEDS: Raltegravir Potassium 400 MG TAB PO SCH ×2 (09:43→21:12)
[2021-06-11] MEDS: Folic Acid 1 MG TAB PO SCH (09:44)
[2021-06-11] MEDS: Lopinavir/Ritonavir 200-50mg TAB PO SCH ×2 (09:45→21:12)
[2021-06-11] MEDS: Enoxaparin Sodium 30 MG/0.3 ML SYRINGE SC SCH (09:59)
[2021-06-11] MEDS ORDERED: Enoxaparin Sodium 40 MG/0.4 ML SYRINGE SC SCH (10:00)
[2021-06-11] MEDS ORDERED: Potassium Chloride 20 MEQ TAB PO SCH (15:30)
[2021-06-11] MEDS: Acetaminophen 325 MG TAB PO PRN (15:42)
[2021-06-11] MEDS: Calcium Carbonate 500 MG ChewTAB PO PRN (15:42)
[2021-06-11] MEDS: Thiamine 100 MG TAB PO SCH (21:12)
[2021-06-11] MEDS: Atorvastatin Calcium 20 MG TAB PO SCH (21:12)
[2021-06-12 06:28] LABS: Hemoglobin 8.1 g/dL (14.0-18.0)
[2021-06-12 06:42] LABS: ALT (SGPT) 24 U/L (8-55); Albumin Less than 1.0 g/dL (3.5-5.0); Alkaline Phosphatase 135 U/L (40-110); Anion Gap 8 mmol/L (10-20); Calc. Creatinine Clearance 36 mL/min (70-130); Calcium 6.6 mg/dL (7.8-10.44); Carbon Dioxide 20 mmol/L (22-29); Chloride 108 mmol/L (98-107); Globulin 3.4 g/dL (2.4-3.5); Glucose 89 mg/dL (70-105); Potassium 3.7 mmol/L (3.5-5.1); Protein, Total 4.4 g/dL (6.0-8.3); Sodium 132 mmol/L (136-145)
[2021-06-12 06:50] LABS: AST (SGOT) 40 U/L (5-34); BUN (Urea Nitrogen) 35 mg/dL (8.9-20.6); Bilirubin, Total 0.2 mg/dL (0.2-1.2)
[2021-06-12] MEDS: Sodium Bicarbonate Tab 325 MG TAB PO SCH ×3 (08:35→21:13)
[2021-06-12] MEDS: pyridOXINE 50 MG (B6) TAB PO SCH (08:36)
[2021-06-12] MEDS: Raltegravir Potassium 400 MG TAB PO SCH ×2 (08:36→21:12)
[2021-06-12] MEDS: Folic Acid 1 MG TAB PO SCH (08:36)
[2021-06-12] MEDS: Fluconazole 100 MG TAB PO SCH (08:36)
[2021-06-12] MEDS: Aspirin 81 mg Enteric Coated Tablet PO SCH (08:36)
[2021-06-12] MEDS: Potassium Chloride 20 MEQ TAB PO SCH (08:36)
[2021-06-12] MEDS: Cyanocobalamin (Vitamin B-12) 1,000 MCG TAB PO SCH (08:36)
[2021-06-12] MEDS: Sulfameth/Trimethoprim SS 400-80MG TAB PO SCH (08:36)
[2021-06-12] MEDS: Senokot S 8.6-50 MG TAB PO SCH ×2 (08:36→21:15)
[2021-06-12] MEDS: Enoxaparin Sodium 40 MG/0.4 ML SYRINGE SC SCH (08:37)
[2021-06-12] MEDS: Lopinavir/Ritonavir 200-50mg TAB PO SCH ×2 (09:20→21:13)
[2021-06-12] MEDS: Sodium Chloride 0.9% 1,000 ML IV SCH ×2 (15:19→23:48)
[2021-06-12] MEDS: Calcium Carbonate 500 MG ChewTAB PO PRN (18:49)
[2021-06-12] MEDS: Atorvastatin Calcium 20 MG TAB PO SCH (21:12)
[2021-06-12] MEDS: Thiamine 100 MG TAB PO SCH (21:13)
[2021-06-13] MEDS: Acetaminophen 325 MG TAB PO PRN ×2 (07:31→20:34)
[2021-06-13] MEDS: Lopinavir/Ritonavir 200-50mg TAB PO SCH ×2 (09:31→20:31)
[2021-06-13] MEDS: Sodium Bicarbonate Tab 325 MG TAB PO SCH ×3 (09:31→20:32)
[2021-06-13] MEDS: pyridOXINE 50 MG (B6) TAB PO SCH (09:31)
[2021-06-13] MEDS: Senokot S 8.6-50 MG TAB PO SCH ×2 (09:31→20:32)
[2021-06-13] MEDS: Sulfameth/Trimethoprim SS 400-80MG TAB PO SCH (09:31)
[2021-06-13] MEDS: Raltegravir Potassium 400 MG TAB PO SCH ×2 (09:31→20:32)
[2021-06-13] MEDS: Folic Acid 1 MG TAB PO SCH (09:31)
[2021-06-13] MEDS: Cyanocobalamin (Vitamin B-12) 1,000 MCG TAB PO SCH (09:32)
[2021-06-13] MEDS: Potassium Chloride 20 MEQ TAB PO SCH (09:32)
[2021-06-13] MEDS: Fluconazole 100 MG TAB PO SCH (09:32)
[2021-06-13] MEDS: Aspirin 81 mg Enteric Coated Tablet PO SCH (09:32)
[2021-06-13] MEDS: Enoxaparin Sodium 40 MG/0.4 ML SYRINGE SC SCH (09:32)
[2021-06-13 10:05] LABS: ALT (SGPT) 23 U/L (8-55); AST (SGOT) 37 U/L (5-34); Albumin Less than 1.0 g/dL (3.5-5.0); Alkaline Phosphatase 122 U/L (40-110); Anion Gap 8 mmol/L (10-20); BUN (Urea Nitrogen) 31 mg/dL (8.9-20.6); Bilirubin, Total 0.2 mg/dL (0.2-1.2); Calc. Creatinine Clearance 41 mL/min (70-130); Calcium 6.2 mg/dL (7.8-10.44); Carbon Dioxide 20 mmol/L (22-29); Chloride 110 mmol/L (98-107); Glucose 83 mg/dL (70-105); Potassium 4.3 mmol/L (3.5-5.1); Sodium 134 mmol/L (136-145)
[2021-06-13] MEDS: Sodium Chloride 0.9% 1,000 ML IV SCH (14:24)
[2021-06-13] MEDS: Furosemide 40 MG TAB PO SCH (15:07)
[2021-06-13] MEDS: Atorvastatin Calcium 20 MG TAB PO SCH (20:31)
[2021-06-13] MEDS: Thiamine 100 MG TAB PO SCH (20:32)
[2021-06-14] MEDS: Sodium Bicarbonate Tab 325 MG TAB PO SCH ×3 (09:26→21:32)
[2021-06-14] MEDS: Potassium Chloride 20 MEQ TAB PO SCH (09:26)
[2021-06-14] MEDS: Sulfameth/Trimethoprim SS 400-80MG TAB PO SCH (09:26)
[2021-06-14] MEDS: Cyanocobalamin (Vitamin B-12) 1,000 MCG TAB PO SCH (09:26)
[2021-06-14] MEDS: pyridOXINE 50 MG (B6) TAB PO SCH (09:26)
[2021-06-14] MEDS: Raltegravir Potassium 400 MG TAB PO SCH ×2 (09:26→21:31)
[2021-06-14] MEDS: Furosemide 40 MG TAB PO SCH ×2 (09:26→14:50)
[2021-06-14] MEDS: Enoxaparin Sodium 40 MG/0.4 ML SYRINGE SC SCH (09:26)
[2021-06-14] MEDS: Aspirin 81 mg Enteric Coated Tablet PO SCH (09:26)
[2021-06-14] MEDS: Folic Acid 1 MG TAB PO SCH (09:27)
[2021-06-14] MEDS: Senokot S 8.6-50 MG TAB PO SCH ×2 (09:27→21:32)
[2021-06-14] MEDS: Fluconazole 100 MG TAB PO SCH (09:27)
[2021-06-14] MEDS: Lopinavir/Ritonavir 200-50mg TAB PO SCH ×2 (10:44→21:31)
[2021-06-14 11:25] LABS: SARS-CoV-2 PCR by NAA Not Detected (NotDetected)
[2021-06-14] MEDS: Acetaminophen 325 MG TAB PO PRN ×2 (14:52→21:33)
[2021-06-14] MEDS: Atorvastatin Calcium 20 MG TAB PO SCH (21:30)
[2021-06-14] MEDS: Thiamine 100 MG TAB PO SCH (21:32)
[2021-06-15] MEDS: Sodium Bicarbonate Tab 325 MG TAB PO SCH ×3 (09:13→20:49)
[2021-06-15] MEDS: Aspirin 81 mg Enteric Coated Tablet PO SCH (09:13)
[2021-06-15] MEDS: Cyanocobalamin (Vitamin B-12) 1,000 MCG TAB PO SCH (09:14)
[2021-06-15] MEDS: Enoxaparin Sodium 40 MG/0.4 ML SYRINGE SC SCH (09:14)
[2021-06-15] MEDS: pyridOXINE 50 MG (B6) TAB PO SCH (09:14)
[2021-06-15] MEDS: Fluconazole 100 MG TAB PO SCH (09:14)
[2021-06-15] MEDS: Raltegravir Potassium 400 MG TAB PO SCH ×2 (09:14→20:49)
[2021-06-15] MEDS: Folic Acid 1 MG TAB PO SCH (09:14)
[2021-06-15] MEDS: Senokot S 8.6-50 MG TAB PO SCH ×2 (09:14→20:50)
[2021-06-15] MEDS: Furosemide 40 MG TAB PO SCH ×2 (09:14→13:50)
[2021-06-15] MEDS: Sulfameth/Trimethoprim SS 400-80MG TAB PO SCH (10:20)
[2021-06-15] MEDS: Lopinavir/Ritonavir 200-50mg TAB PO SCH ×2 (10:21→20:49)
[2021-06-15] MEDS: Acetaminophen 325 MG TAB PO PRN (13:50)
[2021-06-15] MEDS: Thiamine 100 MG TAB PO SCH (20:50)
[2021-06-15] MEDS: Atorvastatin Calcium 20 MG TAB PO SCH (20:50)
[2021-06-16] MEDS: Aspirin 81 mg Enteric Coated Tablet PO SCH (08:48)
[2021-06-16] MEDS: Folic Acid 1 MG TAB PO SCH (08:49)
[2021-06-16] MEDS: Fluconazole 100 MG TAB PO SCH (08:49)
[2021-06-16] MEDS: Cyanocobalamin (Vitamin B-12) 1,000 MCG TAB PO SCH (08:49)
[2021-06-16] MEDS: Enoxaparin Sodium 40 MG/0.4 ML SYRINGE SC SCH (08:49)
[2021-06-16] MEDS: Furosemide 40 MG TAB PO SCH ×2 (08:49→12:29)
[2021-06-16] MEDS: Lopinavir/Ritonavir 200-50mg TAB PO SCH ×2 (08:49→20:16)
[2021-06-16] MEDS: Raltegravir Potassium 400 MG TAB PO SCH ×2 (08:50→20:15)
[2021-06-16] MEDS: Sulfameth/Trimethoprim SS 400-80MG TAB PO SCH (08:50)
[2021-06-16] MEDS: pyridOXINE 50 MG (B6) TAB PO SCH (08:50)
[2021-06-16] MEDS: Senokot S 8.6-50 MG TAB PO SCH ×2 (09:04→20:45)
[2021-06-16] MEDS: Sodium Bicarbonate Tab 325 MG TAB PO SCH ×3 (09:04→20:15)
[2021-06-16] MEDS: Acetaminophen 325 MG TAB PO PRN ×2 (12:29→20:18)
[2021-06-16] MEDS: Thiamine 100 MG TAB PO SCH (20:16)
[2021-06-16] MEDS: Atorvastatin Calcium 20 MG TAB PO SCH (20:16)
[2021-06-17] MEDS: Sulfameth/Trimethoprim SS 400-80MG TAB PO SCH (09:42)
[2021-06-17] MEDS: Enoxaparin Sodium 40 MG/0.4 ML SYRINGE SC SCH (09:44)
[2021-06-17] MEDS: Cyanocobalamin (Vitamin B-12) 1,000 MCG TAB PO SCH (09:45)
[2021-06-17] MEDS: Folic Acid 1 MG TAB PO SCH (09:45)
[2021-06-17] MEDS: Lopinavir/Ritonavir 200-50mg TAB PO SCH ×2 (09:45→20:51)
[2021-06-17] MEDS: Furosemide 40 MG TAB PO SCH ×2 (09:45→14:46)
[2021-06-17] MEDS: Aspirin 81 mg Enteric Coated Tablet PO SCH (09:45)
[2021-06-17] MEDS: Senokot S 8.6-50 MG TAB PO SCH ×2 (09:46→20:51)
[2021-06-17] MEDS: Raltegravir Potassium 400 MG TAB PO SCH ×2 (09:46→20:51)
[2021-06-17] MEDS: Fluconazole 100 MG TAB PO SCH (09:48)
[2021-06-17] MEDS: Sodium Bicarbonate Tab 325 MG TAB PO SCH ×3 (09:53→20:51)
[2021-06-17] MEDS: pyridOXINE 50 MG (B6) TAB PO SCH (09:53)
[2021-06-17] MEDS: Acetaminophen 325 MG TAB PO PRN (14:48)
[2021-06-17] MEDS: Atorvastatin Calcium 20 MG TAB PO SCH (20:50)
[2021-06-17] MEDS: Thiamine 100 MG TAB PO SCH (20:51)
[2021-06-18 07:35] LABS: Anion Gap 8 mmol/L (10-20); BUN (Urea Nitrogen) 22 mg/dL (8.9-20.6); Calc. Creatinine Clearance 55 mL/min (70-130); Calcium 6.7 mg/dL (7.8-10.44); Carbon Dioxide 21 mmol/L (22-29); Chloride 107 mmol/L (98-107); Glucose 64 mg/dL (70-105); Potassium 3.9 mmol/L (3.5-5.1); Sodium 132 mmol/L (136-145)
[2021-06-18] MEDS: Aspirin 81 mg Enteric Coated Tablet PO SCH (08:57)
[2021-06-18] MEDS: Sodium Bicarbonate Tab 325 MG TAB PO SCH ×3 (08:57→20:25)
[2021-06-18] MEDS: Folic Acid 1 MG TAB PO SCH (08:58)
[2021-06-18] MEDS: Fluconazole 100 MG TAB PO SCH (08:58)
[2021-06-18] MEDS: Cyanocobalamin (Vitamin B-12) 1,000 MCG TAB PO SCH (08:58)
[2021-06-18] MEDS: Senokot S 8.6-50 MG TAB PO SCH ×2 (08:58→20:24)
[2021-06-18] MEDS: Raltegravir Potassium 400 MG TAB PO SCH ×2 (08:58→20:23)
[2021-06-18] MEDS: Furosemide 40 MG TAB PO SCH ×2 (08:58→15:06)
[2021-06-18] MEDS: Enoxaparin Sodium 40 MG/0.4 ML SYRINGE SC SCH (08:59)
[2021-06-18] MEDS: Lopinavir/Ritonavir 200-50mg TAB PO SCH ×2 (08:59→20:23)
[2021-06-18] MEDS: Sulfameth/Trimethoprim SS 400-80MG TAB PO SCH (08:59)
[2021-06-18] MEDS: Acetaminophen 325 MG TAB PO PRN ×2 (15:10→18:39)
[2021-06-18] MEDS: pyridOXINE 50 MG (B6) TAB PO SCH (16:19)
[2021-06-18] MEDS: Atorvastatin Calcium 20 MG TAB PO SCH (20:22)
[2021-06-18] MEDS: Thiamine 100 MG TAB PO SCH (20:25)
[2021-06-19 05:50] LABS: Anion Gap 6 mmol/L (10-20); BUN (Urea Nitrogen) 22 mg/dL (8.9-20.6); Calc. Creatinine Clearance 55 mL/min (70-130); Calcium 6.6 mg/dL (7.8-10.44); Carbon Dioxide 20 mmol/L (22-29); Chloride 108 mmol/L (98-107); Glucose 74 mg/dL (70-105); Potassium 3.9 mmol/L (3.5-5.1); Sodium 130 mmol/L (136-145)
[2021-06-19] MEDS: Senokot S 8.6-50 MG TAB PO SCH ×2 (08:46→20:05)
[2021-06-19] MEDS: Aspirin 81 mg Enteric Coated Tablet PO SCH (08:46)
[2021-06-19] MEDS: Fluconazole 100 MG TAB PO SCH (08:46)
[2021-06-19] MEDS: Folic Acid 1 MG TAB PO SCH (08:46)
[2021-06-19] MEDS: Raltegravir Potassium 400 MG TAB PO SCH ×2 (08:46→20:04)
[2021-06-19] MEDS: Sodium Bicarbonate Tab 325 MG TAB PO SCH ×3 (08:46→20:05)
[2021-06-19] MEDS: Furosemide 40 MG TAB PO SCH ×2 (08:47→17:33)
[2021-06-19] MEDS: Enoxaparin Sodium 40 MG/0.4 ML SYRINGE SC SCH ×2 (08:47→10:47)
[2021-06-19] MEDS: pyridOXINE 50 MG (B6) TAB PO SCH (08:47)
[2021-06-19] MEDS: Cyanocobalamin (Vitamin B-12) 1,000 MCG TAB PO SCH (08:47)
[2021-06-19] MEDS: Lopinavir/Ritonavir 200-50mg TAB PO SCH ×2 (10:42→20:04)
[2021-06-19] MEDS: Sulfameth/Trimethoprim SS 400-80MG TAB PO SCH (13:30)
[2021-06-19] MEDS: Atorvastatin Calcium 20 MG TAB PO SCH (20:04)
[2021-06-19] MEDS: Thiamine 100 MG TAB PO SCH (20:05)
[2021-06-19] MEDS: Mupirocin 2% Ointment 22 GM Tube TOP SCH (21:04)
[2021-06-20 05:42] LABS: Anion Gap 4 mmol/L (10-20); BUN (Urea Nitrogen) 19 mg/dL (8.9-20.6); Calc. Creatinine Clearance 65 mL/min (70-130); Calcium 6.6 mg/dL (7.8-10.44); Carbon Dioxide 23 mmol/L (22-29); Chloride 109 mmol/L (98-107); Glucose 105 mg/dL (70-105); Potassium 3.3 mmol/L (3.5-5.1); Sodium 133 mmol/L (136-145)
[2021-06-20] MEDS: Furosemide 40 MG TAB PO SCH ×2 (09:03→15:09)
[2021-06-20] MEDS: Cyanocobalamin (Vitamin B-12) 1,000 MCG TAB PO SCH (09:03)
[2021-06-20] MEDS: Folic Acid 1 MG TAB PO SCH (09:03)
[2021-06-20] MEDS: Fluconazole 100 MG TAB PO SCH (09:03)
[2021-06-20] MEDS: Sodium Bicarbonate Tab 325 MG TAB PO SCH ×3 (09:03→21:03)
[2021-06-20] MEDS: Aspirin 81 mg Enteric Coated Tablet PO SCH (09:04)
[2021-06-20] MEDS: Raltegravir Potassium 400 MG TAB PO SCH ×2 (09:04→21:02)
[2021-06-20] MEDS: Enoxaparin Sodium 40 MG/0.4 ML SYRINGE SC SCH (09:04)
[2021-06-20] MEDS: pyridOXINE 50 MG (B6) TAB PO SCH (09:04)
[2021-06-20] MEDS: Senokot S 8.6-50 MG TAB PO SCH ×2 (09:05→21:03)
[2021-06-20] MEDS: Lopinavir/Ritonavir 200-50mg TAB PO SCH ×2 (09:18→21:01)
[2021-06-20] MEDS: Mupirocin 2% Ointment 22 GM Tube TOP SCH ×3 (09:19→21:02)
[2021-06-20] MEDS: Sulfameth/Trimethoprim SS 400-80MG TAB PO SCH (09:19)
[2021-06-20] MEDS ORDERED: Ketorolac Tromethamine 30 MG/ML VIAL IVP PRN (12:20)
[2021-06-20] MEDS: Atorvastatin Calcium 20 MG TAB PO SCH (21:01)
[2021-06-20] MEDS: Thiamine 100 MG TAB PO SCH (21:03)
[2021-06-21 06:50] LABS: Anion Gap 8 mmol/L (10-20); BUN (Urea Nitrogen) 17 mg/dL (8.9-20.6); Calc. Creatinine Clearance 71 mL/min (70-130); Calcium 6.5 mg/dL (7.8-10.44); Carbon Dioxide 20 mmol/L (22-29); Chloride 109 mmol/L (98-107); Glucose 70 mg/dL (70-105); Potassium 3.8 mmol/L (3.5-5.1); Sodium 133 mmol/L (136-145)
[2021-06-21 09:08] VITALS: TEMP 98.6
[2021-06-21] MEDS: Mupirocin 2% Ointment 22 GM Tube TOP SCH (09:14)
[2021-06-21] MEDS: Sulfameth/Trimethoprim SS 400-80MG TAB PO SCH (09:15)
[2021-06-21] MEDS: pyridOXINE 50 MG (B6) TAB PO SCH (09:15)
[2021-06-21] MEDS: Fluconazole 100 MG TAB PO SCH (09:15)
[2021-06-21] MEDS: Folic Acid 1 MG TAB PO SCH (09:15)
[2021-06-21] MEDS: Aspirin 81 mg Enteric Coated Tablet PO SCH (09:15)
[2021-06-21] MEDS: Lopinavir/Ritonavir 200-50mg TAB PO SCH (09:15)
[2021-06-21] MEDS: Raltegravir Potassium 400 MG TAB PO SCH (09:16)
[2021-06-21] MEDS: Sodium Bicarbonate Tab 325 MG TAB PO SCH (09:16)
[2021-06-21] MEDS: Senokot S 8.6-50 MG TAB PO SCH (09:16)
[2021-06-21] MEDS: Cyanocobalamin (Vitamin B-12) 1,000 MCG TAB PO SCH (09:16)
[2021-06-21] MEDS: Furosemide 40 MG TAB PO SCH (09:16)
[2021-06-21] MEDS: Enoxaparin Sodium 40 MG/0.4 ML SYRINGE SC SCH (09:17)
[2021-06-21 12:31] VITALS: BP 114/87
[2021-06-21 12:34] LABS: SARS-CoV-2 PCR by NAA Not Detected (NotDetected)
== END 2021-06-21 13:08 | disposition home or self-care (01) | DRG 974 ==
LOC: ERS 10:52 → ERHOLD 12:19 → SJJU 19:24 → OBSVTOIN 06-10 14:56
PROVIDERS: ADMIT Internal Medicine; ATTEND Internal Medicine
DX: B20 Human immunodeficiency virus [HIV] disease (principal); B59 Pneumocystosis; E43 Unspecified severe protein-calorie malnutrition; N17.9 Acute kidney failure, unspecified; B25.8 Other cytomegaloviral diseases; I42.8 Other cardiomyopathies; I13.0 Hypertensive heart and chronic kidney disease with heart failure and stage 1 through stage 4 chronic kidney disease, or unspecified chronic kidney disease; Z68.1 Body mass index [BMI] 19.9 or less, adult; N18.4 Chronic kidney disease, stage 4 (severe); Z20.822 Contact with and (suspected) exposure to COVID-19; E86.0 Dehydration; I50.9 Heart failure, unspecified; E88.09 Other disorders of plasma-protein metabolism, not elsewhere classified; D63.1 Anemia in chronic kidney disease; E86.9 Volume depletion, unspecified; E87.6 Hypokalemia; S40.211A Abrasion of right shoulder, initial encounter; W01.198A Fall on same level from slipping, tripping and stumbling with subsequent striking against other object, initial encounter; Y92.231 Patient bathroom in hospital as the place of occurrence of the external cause; Z79.899 Other long term (current) drug therapy; Z79.82 Long term (current) use of aspirin; E78.5 Hyperlipidemia, unspecified; F32.A Depression, unspecified; Z83.3 Family history of diabetes mellitus; Z81.1 Family history of alcohol abuse and dependence; F17.210 Nicotine dependence, cigarettes, uncomplicated; F10.10 Alcohol abuse, uncomplicated
CPT/HCPCS: 36415; 80048; 80053; 82550; 85014; 85018; 85025; 93005; 96372; G0378; J1650; J7050; J7070; U0003; U0005

== ENCOUNTER 2022-04-11 13:46 | Emergency (ER) | payer MEDICAID ==
[2022-04-11 15:14] LABS: Hemoglobin 14.2 g/dL (14.0-18.0); Mean Corpuscular HGB CONC 31.8 g/dL (32.0-36.0); Mean Corpuscular Hemoglobin 32.3 pg (27.0-31.0); Mean Platelet Volume 7.4 fL (7.4-10.4); Platelet Count 255 10x3/uL (130-400); RBC Distribution Width 11.7 % (11.5-14.5); White Blood Cell (WBC) Count 7.8 10x3/uL (4.8-10.8)
[2022-04-11 15:45] LABS: ALT (SGPT) 61 U/L (8-55); AST (SGOT) 49 U/L (5-34); Albumin 3.3 g/dL (3.5-5.0); Alkaline Phosphatase 76 U/L (40-110); Anion Gap 9 mmol/L (10-20); BUN (Urea Nitrogen) 12 mg/dL (8.9-20.6); Bilirubin, Total 0.6 mg/dL (0.2-1.2); Calc. Creatinine Clearance 0 mL/min (70-130); Calcium 9.3 mg/dL (7.8-10.44); Carbon Dioxide 27 mmol/L (22-29); Chloride 106 mmol/L (98-107); Estimated GFR 71; Globulin 4.4 g/dL (2.4-3.5); Glucose 80 mg/dL (70-105); Lipase 58 U/L (8-78); Potassium 5.3 mmol/L (3.5-5.1); Protein, Total 7.7 g/dL (6.0-8.3); Sodium 137 mmol/L (136-145)
[2022-04-11 15:56] LABS: Eosinophils 6 % (0-10); Lymphocytes 28 % (21-51); MDiff Complete? YES; Macrocytosis SLIGHT = 6-15 cells (100X) (0-5/hpf); Monocytes 18 % (0-10); Neutrophil 48 % (42-75)
[2022-04-11 16:07] LABS: Bilirubin Negative (Negative); Blood, Urine Negative (Negative); Glucose, Urine (Dipstick) 100 mg/dL (Negative); Ketone, Urine Negative (Negative); Leukocyte Negative (Negative); Nitrite Negative (Negative); Protein, Urine (Dipstick) 100 mg/dL (Neg-Trace); Specific Gravity, Urine 1.025 (1.005-1.030); Urobilinogen 0.2 mg/dL (Less than 2); pH, Urine 6.5 (5.0-9.0)
[2022-04-11 16:10] LABS: Clarity Hazy (Clear)
[2022-04-11 16:24] LABS: Bacteria/HPF None Seen HPF (None Seen); RBC/HPF 0-3 HPF (0-3); Squamous Epithelial None Seen HPF (0-3); WBC/HPF 0-3 HPF (0-3)
== END 2022-04-11 16:37 ==
LOC: ERS 13:46
DX: R07.9 Chest pain, unspecified (principal); I10 Essential (primary) hypertension
CPT/HCPCS: 71045; 80053; 81003; 81015; 83690; 83880; 84484; 85025

== ENCOUNTER 2022-08-26 16:22 | Emergency (ER) | payer OTHER | END 2022-08-26 18:00 | disposition home or self-care (01) | LOC: ERS 16:22 | DX: S10.93XA Contusion of unspecified part of neck, initial encounter (principal); S00.01XA Abrasion of scalp, initial encounter; I12.0 Hypertensive chronic kidney disease with stage 5 chronic kidney disease or end stage renal disease; I50.9 Heart failure, unspecified; B20 Human immunodeficiency virus [HIV] disease; Y04.2XXA Assault by strike against or bumped into by another person, initial encounter | CPT/HCPCS: 99283 ==